=== PATIENT | female | born 1990 | race Hispanic/Latino ===

== ENCOUNTER 2018-12-06 13:16 | Outpatient (CLI) | payer BC ==
[2018-12-06] MEDS ORDERED: LACTATED RINGERS 1,000 ML IV SCH (14:00)
[2018-12-06 14:35] LABS: Bacteria,Urine 1+ /HPF (Negative); Bilirubin,Urine NEG (Negative); Blood,Urine NEG (Negative); Color,Urine Yellow (Yellow); Mucus,Urine FEW /HPF; Protein,Urine <15 mg/dL mg/dL (Negative); Urobilinogen,Urine < 2.0 mg/dL (<2.0)
[2018-12-06 15:56] VITALS: BP 111/55
[2018-12-06] MEDS ORDERED: XYLOCAINE 1% MPF 5 mL INFILTRATI ONE (16:00)
[2018-12-06] MEDS ORDERED: ROCEPHIN IM ONE (16:00)
== END 2018-12-06 16:24 | disposition home or self-care (01) ==
LOC: TRG 13:16
PROVIDERS: ATTEND Obstetrics & Gynecology
DX: O26.892 Other specified pregnancy related conditions, second trimester (principal); R42 Dizziness and giddiness; Z3A.20 20 weeks gestation of pregnancy; Z87.891 Personal history of nicotine dependence
CPT/HCPCS: 81001; 96372; J0696

== ENCOUNTER 2019-01-20 11:40 | Outpatient (CLI) | payer BC ==
[2019-01-20 11:53] VITALS: BP 117/67
[2019-01-20 12:57] LABS: Bilirubin,Urine NEG (Negative); Blood,Urine NEG (Negative); Color,Urine Yellow (Yellow); Mucus,Urine FEW /HPF; Protein,Urine <15 mg/dL mg/dL (Negative); Urobilinogen,Urine < 2.0 mg/dL (<2.0)
[2019-01-20] MEDS ORDERED: LACTATED RINGERS 500 ML IV ONE (13:00)
== END 2019-01-20 14:20 | disposition home or self-care (01) ==
LOC: TRG 11:40
PROVIDERS: ATTEND Obstetrics & Gynecology
DX: O26.892 Other specified pregnancy related conditions, second trimester (principal); R55 Syncope and collapse; Z3A.26 26 weeks gestation of pregnancy
CPT/HCPCS: 59025; 81001

== ENCOUNTER 2019-03-22 21:28 | Outpatient (CLI) | payer BC ==
[2019-03-22] MEDS ORDERED: TERBUTALINE 1 MG/1 ML INJ SUB-Q ONE (23:22)
[2019-03-22] MEDS ORDERED: LACTATED RINGERS 1,000 ML IV ONE (23:23)
[2019-03-22] MEDS ORDERED: LACTATED RINGERS 1000 ML IV SOLN ONE (23:58)
[2019-03-23 00:28] VITALS: BP 132/73
== END 2019-03-23 02:41 | disposition home or self-care (01) ==
LOC: TRG 21:28
PROVIDERS: ATTEND Obstetrics & Gynecology
DX: O62.9 Abnormality of forces of labor, unspecified (principal); O99.613 Diseases of the digestive system complicating pregnancy, third trimester; K80.20 Calculus of gallbladder without cholecystitis without obstruction; Z3A.35 35 weeks gestation of pregnancy
CPT/HCPCS: 96360; 96372; J3105; J7120; Q0177

== ENCOUNTER 2019-03-23 06:43 | Inpatient (IN) | payer BC ==
[2019-03-23] MEDS ORDERED: LACTATED RINGERS 1,000 ML IV ONE (07:19)
[2019-03-23] MEDS ORDERED: LACTATED RINGERS 1,000 ML IV SCH ×2 (08:00→10:00)
[2019-03-23] MEDS ORDERED: BENZOCAINE/MENTHOL 20/0.5% TOP SPRAY 56 GM TP PRN (08:00)
[2019-03-23] MEDS: BUTORPHANOL 2 MG/1 ML INJ IV PRN ×2 (08:45→10:34)
[2019-03-23] MEDS ORDERED: AMPICILLIN/NS 2 GM/100 ML 2 GM/100 ML BAG IV ONE ×2 (09:33→09:34)
[2019-03-23] MEDS ORDERED: MINERAL OIL 30 ML ORAL LIQD PO PRN (09:34)
[2019-03-23] MEDS ORDERED: TERBUTALINE 1 MG/1 ML INJ SUB-Q PRN (09:34)
[2019-03-23] MEDS ORDERED: TERBUTALINE 1 MG/1 ML INJ IVP PRN (09:34)
[2019-03-23] MEDS ORDERED: LIDOCAINE (2%) 20 MG/1 ML VIAL 20 ML MDV INFILTRATI ONE ×2 (09:34→11:56)
[2019-03-23] MEDS ORDERED: ePHEDrine SULFATE 50 MG/1 ML INJ IV PRN (09:34)
[2019-03-23] MEDS ORDERED: OXYTOCIN DRIP 30 UNITS/500 ML BAG IV SCH (10:00)
[2019-03-23] MEDS ORDERED: OXYTOCIN 20 UNIT/1000ML DRIP 20 UNITS/1,000 ML BAG IV SCH (10:00)
[2019-03-23 10:48] LABS: Basophils % (Auto) 0.4 % (0.0-1.8); Eosinophils % (Auto) 0.2 % (0.0-4.3); Hematocrit 32.7 % (30.3-42.9); Hemoglobin 10.8 gm/dl (10.1-14.3); Lymphocytes # (Auto) 1.4 K/mm3 (1.2-5.4); Lymphocytes % (Auto) 9.9 % (13.4-35.0); Mean Corpuscular HGB Conc 33 % (30-34); Mean Corpuscular Volume 84 fl (79-97); Monocytes # (Auto) 0.6 K/mm3 (0.0-0.8); Monocytes % (Auto) 4.6 % (0.0-7.3); Red Blood Count 3.87 M/mm3 (3.65-5.03); Red Cell Distribution Width 13.1 % (13.2-15.2)
[2019-03-23 10:49] LABS: Platelet Count 153 K/mm3 (140-440)
[2019-03-23] MEDS ORDERED: miSOPROStol 200 MCG TAB ONE (11:53)
[2019-03-23] MEDS ORDERED: CARBOPROST TROMETHAMINE 250 MCG/1 ML INJ IM ONE (11:53)
[2019-03-23] MEDS ORDERED: METHYLERGONOVINE MALEATE 0.2 MG/ML VIAL IM ONE (11:55)
--- NOTE | 2019-03-23 12:03 | History and Physical Report ---
History of Present Illness Date of examination: 03/23/19 Date of admission: 03/23/19 11:38 Chief complaint: contractions Past History - Obstetrical History : 2 Medications and Allergies Allergies Allergy/AdvReac Type Severity Reaction Status Date / Time No Known Allergies Allergy Verified 12/06/18 13:40 Home Medications Medication Instructions Recorded Confirmed Last Taken Type Ursodiol 300 mg PO TID 03/22/19 03/23/19 03/22/19 19:00 History Ursodiol 300 mg PO TID 03/22/19 03/23/19 03/22/19 21:00 History Pnv,Calcium 72/Iron/Folic Acid 1 tab PO DAILY 03/23/19 03/23/19 03/22/19 09:00 History [Pnv Plus Multivit Tab] Active Meds: Active Medications Butorphanol Tartrate (Stadol) 2 mg IV Q2H PRN PRN Reason: Labor Pain Last Admin: 03/23/19 10:34 Dose: 2 mg Documented by: Ephedrine Sulfate (Ephedrine Sulfate) 10 mg IV Q2M PRN PRN Reason: Hypotension Lactated Ringer's (Lactated Ringers) 1,000 mls @ 125 mls/hr IV DIRECT FOX Last Admin: 03/23/19 10:37 Dose: 125 mls/hr Documented by: Oxytocin/Sodium Chloride (Pitocin/Ns 20 Unit/1000ml Drip) 20 units in 1,000 mls @ 125 mls/hr IV DIRECT FOX Oxytocin/Sodium Chloride (Pitocin/Ns 30 Unit/500ml) 30 units in 500 mls @ 1 mls/hr IV TITR FOX; Protocol Lactated Ringer's (Lactated Ringers) 1,000 mls @ 125 mls/hr IV DIRECT FOX Ampicillin Sodium (Ampicillin/Ns 1 Gm/50 Ml) 1 gm in 50 mls @ 100 mls/hr IV Q4HR FOX; Protocol Mineral Oil (Mineral Oil) 30 ml PO QHS PRN PRN Reason: Constipation Terbutaline Sulfate (Brethine) 0.25 mg SUB-Q ONCE PRN PRN Reason: Hyperstimulation/Hypertonicity Terbutaline Sulfate (Brethine) 0.25 mg IVP ONCE PRN PRN Reason: Hyperstimulation/Hypertonicity - Vital Signs Vital signs: Vital Signs Pulse BP 85 146/92 03/23/19 06:59 03/23/19 06:59 Temp Pulse Resp BP Pulse Ox 97.9 F 87 139/73 03/23/19 07:00 03/23/19 08:20 03/23/19 08:20 Results Result Diagrams: 03/23/19 10:06 Abnormal lab results 03/23/19 Range/Units 10:06 WBC 14.0 H (4.5-11.0) K/mm3 RDW 13.1 L (13.2-15.2) % Lymph % (Auto) 9.9 L (13.4-35.0) % Seg Neutrophils % 84.9 H (40.0-70.0) % Seg Neutrophils # 11.9 H (1.8-7.7) K/mm3 All other labs normal.
[2019-03-23] MEDS ORDERED: ONDANSETRON 4 MG/2 ML INJ IV PRN (12:05)
[2019-03-23] MEDS ORDERED: WITCH HAZEL/ GLYCERIN PAD TP PRN (12:05)
[2019-03-23] MEDS ORDERED: PROMETHAZINE 25 MG RECT SUPP PR PRN (12:05)
[2019-03-23] MEDS ORDERED: MAGNESIUM HYDROXIDE (MOM) ORAL LIQD UDC PO PRN (12:05)
[2019-03-23] MEDS ORDERED: PROMETHAZINE 25 MG TAB PO PRN (12:05)
[2019-03-23] MEDS ORDERED: LANOLIN/ZINC/DIMETHICONE (LANSINOH) 7 GM TP PRN (12:05)
[2019-03-23] MEDS ORDERED: ACETAMINOPHEN 325 MG TAB PO PRN (12:05)
[2019-03-23] MEDS ORDERED: diphenhydrAMINE 25 MG CAP PO PRN (12:05)
--- NOTE | 2019-03-23 12:05 | Procedure Note ---
OB Delivery Note - Delivery Date of Delivery: 03/23/19 Surgeon: FRANCESCO CHOU Estimated blood loss: other (600ml) - Vaginal Delivery presentation: vertex Delivery position: OA Intrapartum events: labor-<37 weeks, uterine atony Delivery monitor: external FHT, external uterine Route of delivery: Delivery placenta: spontaneous Delivery cord: 3 umbilical vessels Episiotomy: none Delivery laceration: 1st degree Delivery repair: vicryl Anesthesia: local - Infant A at 1 minute: 8 at 5 minutes: 9 Gender: Female (weight 7lbs 10oz)
[2019-03-23] MEDS ORDERED: miSOPROStol 200 MCG TAB PR ONE (13:00)
[2019-03-23] MEDS: IBUPROFEN 600 MG TAB PO SCH (13:13)
[2019-03-23] MEDS ORDERED: AMPICILLIN/NS 1 GM/50 ML 1 GM/50 ML BAG IV SCH (13:36)
[2019-03-23] MEDS ORDERED: BENZOCAINE/MENTHOL 20/0.5% TOP SPRAY 56 GM TP ONE (17:11)
[2019-03-23] MEDS: HYDROcodone/ACETAMINOPHEN 5-325 MG TAB PO PRN (17:16)
[2019-03-23] MEDS ORDERED: BENZOCAINE 20% TOP SPRAY 0.5 ML UNIT DOSE MM NR (18:00)
[2019-03-23 18:20] LABS: Bilirubin,Urine NEG (Negative); Blood,Urine LG (Negative); Color,Urine Amber (Yellow); Mucus,Urine 1+ /HPF
[2019-03-23] MEDS: AMPICILLIN/SULBACTA 3GM/100ML 3 GM/100 ML BAG IV SCH (20:48)
[2019-03-24] MEDS: IBUPROFEN 600 MG TAB PO SCH ×4 (00:51→17:42)
[2019-03-24 01:20] LABS: Hematocrit 22.7 % (30.3-42.9); Hemoglobin 7.7 gm/dl (10.1-14.3)
[2019-03-24] MEDS: AMPICILLIN/SULBACTA 3GM/100ML 3 GM/100 ML BAG IV SCH ×2 (06:07→12:22)
[2019-03-24] MEDS: HYDROcodone/ACETAMINOPHEN 5-325 MG TAB PO PRN (08:47)
[2019-03-25] MEDS: AMPICILLIN/SULBACTA 3GM/100ML 3 GM/100 ML BAG IV SCH ×2 (00:01→05:54)
[2019-03-25] MEDS: IBUPROFEN 600 MG TAB PO SCH ×2 (05:57→14:48)
--- NOTE | 2019-03-25 08:30 | Progress Note ---
Assessment and Plan A: PPD# 2 s/p at 35 wks , Cholestasis of , Acute on chronic anemia P: Routine care. Repeat Hemoglobin and hematocrit. Anticipate discharge today with close clinical follow up. Subjective - Subjective Date of service: 03/25/19 Principal diagnosis: s/p at 35 wks , Cholestasis of , Febrile Morbidity Interval history: Pt is without complaints. She does report having a fever immediately after the with her first , but no impetus was discovered at that time. She reports decreasing lochia and hopes she is able to go home today. Patient reports: appetite normal, voiding normally, pain well controlled, ambulating normally [place]: doing well Objective - Vital Signs Latest vital signs: Vital Signs Temp Pulse Resp BP BP Pulse Ox 03/25/19 06:30 97.6 F 03/25/19 00:41 97.9 F 83 20 128/69 98 03/24/19 17:42 20 03/24/19 15:25 97.6 F 75 18 123/61 03/24/19 12:20 20 03/24/19 08:47 20 Intake and Output 03/24/19 03/25/19 03/25/19 22:59 06:59 14:59 Intake Total 900 580 Balance 900 580 Intake: IV 100 100 UNASYN/NS 3 GM/100 ML 3 100 100 gm In 100 ml @ 200 mls/hr IV Q6HR FOX Rx#: [id number] Oral 800 480 Other: Total, Intake Amount 240 240 # Voids Void 1 1 - Exam Breasts: Present: deferred Cardiovascular: Present: Regular rate Lungs: Present: Clear to auscultation Abdomen: Present: soft (obese ) Uterus: Present: fundal height below umbilicus Extremities: Present: normal
--- NOTE | 2019-03-25 08:34 | Discharge Summary ---
Providers - Providers Date of Admission: 03/23/19 11:38 Date of discharge: 03/25/19 Attending physician: FRANCESCO CHOU Primary care physician: FRANCESCO CHOU Hospitalization Reason for admission: active labor Delivery: Procedure details: Please see delivery note. Episiotomy: none Laceration: 1st degree Other procedures: none complications: none Discharge diagnosis: delivery baby: female Hospital course: Pt was admitted in labor and went on to have a viable female which she tolerated well. Her course was complicated by fever immediately after delivery with negative blood and urine cultures. Pt did report that this occurred after the of her first child as well. Her course was uncomplicated and she met discharge criteria on PPD#2. She will be discharge today with close clinical follow up. Condition at discharge: Stable Disposition: DC- TO HOME OR SELFCARE - Discharge Diagnoses (1) labor in third trimester with delivery Status: Acute Qualifiers: Fetus number: single or unspecified fetus Qualified Code(s): O60.14X0 - labor third trimester with delivery third trimester, not applicable or unspecified (2) Acute on chronic anemia Status: Acute (3) Obesity Status: Acute Qualifiers: Obesity type: unspecified obesity type Obesity classification: adult class 3 (BMI >= 40) Body mass index: BMI 40.0-44.9 (4) Cholestasis during Status: Acute Qualifiers: Trimester: third trimester Qualified Code(s): O26.613 - Liver and biliary tract disorders in , third trimester; K83.1 - Obstruction of bile duct Plan - Discharge Medications Prescriptions: Docusate Sodium [Colace] 100 mg PO BID PRN #60 capsule PRN Reason: Constipation Ferrous Sulfate [Feosol 325 MG tab] 325 mg PO BID #60 tablet Ibuprofen [Motrin] 800 mg PO Q8HR PRN #30 tablet PRN Reason: Pain, Moderate (4-6) HYDROcodone/APAP 5-325 [[place] 5/325] 1 each PO Q6HR PRN #15 tablet PRN Reason: Pain - Provider Discharge Summary Activity: routine, no sex for 6 weeks, no heavy lifting 4 weeks, no strenuous exercise Diet: routine Instructions: routine Additional instructions: [] Smoking cessation referral if applicable(refer to patient education folder for contact #) [] Refer to [facility] Booklet Call your doctor immediately for: * Fever > 100.5 * Heavy vaginal bleeding ( >1 pad per hour) * Severe persistent headache * Shortness of breath * Reddened, hot, painful area to leg or breast * Drainage or odor from incision. * Keep incision clean and dry at all times and follow doctor's instructions regarding bathing/showering - Follow up plan Follow up: FRANCESCO CHOU MD [Primary Care Provider] - 7 Days
[2019-03-25 08:36] VITALS: BP 134/73
[2019-03-25 08:46] LABS: Hematocrit 23.3 % (30.3-42.9); Hemoglobin 7.7 gm/dl (10.1-14.3)
[2019-03-25] MEDS: HYDROcodone/ACETAMINOPHEN 5-325 MG TAB PO PRN (09:00)
== END 2019-03-25 15:59 | disposition home or self-care (01) | DRG 806 ==
LOC: TRG 06:43 → LD 07:22 → TRG 11:37 → LD 11:38 → OB 13:37
PROVIDERS: ADMIT Obstetrics & Gynecology; ATTEND Obstetrics & Gynecology
PROC: 10E0XZZ Delivery of Products of Conception, External Approach (ICD-10-PCS; principal; 2019-03-23)
PROC: 0HQ9XZZ Repair Perineum Skin, External Approach (ICD-10-PCS; 2019-03-23)
DX: O60.14X0 Preterm labor third trimester with preterm delivery third trimester, not applicable or unspecified (principal); O75.2 Pyrexia during labor, not elsewhere classified; Z37.0 Single live birth; O70.0 First degree perineal laceration during delivery; O99.02 Anemia complicating childbirth; O99.214 Obesity complicating childbirth; O62.2 Other uterine inertia; Z3A.35 35 weeks gestation of pregnancy; Z79.899 Other long term (current) drug therapy
CPT/HCPCS: 36415; 81001; 85014; 85018; 85025; 86850; 86900; 86901; 87040; 87086; 96360; 96372; G0378; A6250; J0290; J0295; J0595; J2210; J2590; J3105; J7120; Q0177